=== PATIENT | male | born 1945 | race Caucasian/White ===

== ENCOUNTER → 2020-10-01 15:22 | Outpatient (CLI) | payer MEDICARE, OTHER, SELFPAY ==
[2020-10-01 17:14] LABS: COVID19 -Nasal RAPID Negative (Negative)
== END ==
PROVIDERS: Visit Provider Physician Assistant
DX: Z01.812 Encounter for preprocedural laboratory examination (principal); Z20.822 Contact with and (suspected) exposure to COVID-19
CPT/HCPCS: 87635; C9803

== ENCOUNTER 2020-10-03 11:06 | Day surgery (SDC) | payer MEDICARE, OTHER, SELFPAY ==
[2020-10-03] VITALS (8 sets, daily range): BP systolic 142–157; BP diastolic 86–94; PULSE 65–90; RESP 10–18; TEMP 36.7–37; O2SAT 95–98; BMI 35.4
--- NOTE | 2020-10-03 | PATH_ITS ---
[facility] Accession Number: [id number] . 01 Material submitted: . PART A: colon - ASCENDING COLON POLYPS PART B: colon - TRANSVERSE COLON POLYPS . 01 Clinical history: . A: POLYPS X2 B: POLYPS X2 . 02 Diagnosis: A. Ascending Colon Polyps: Portion of tubular adenoma x1. Superficial portion of colorectal mucosa x1 with a benign lymphoid aggregate. . B. Transverse Colon Polyps: Portions of tubular adenoma x2. MRV 10/08/2020 1035 Local . 02 Electronically signed: . Karmen Love MD, Pathologist NPI- [id number] . 01 Gross description: . Part A: ASCENDING COLON POLYPS: Received in formalin are 2 fragment(s) of patel, soft tissue measuring 0.2 x 0.2 x 0.2 cm to 0.4 x 0.2 x 0.2 cm submitted entirely in 1 cassette(s) Part B: TRANSVERSE COLON POLYPS: Received in formalin are 2 fragment(s) of patel, soft tissue measuring 0.2 x 0.2 x 0.2 cm to 0.4 x 0.4 x 0.2 cm submitted entirely in 1 cassette(s) /HINA 10/04/2020 1922 Local . 02 Pathologist provided ICD-10: K63.5, Z80.0 . 02 CPT . 742261, 898862 Performed at: [address] [facility] [address] [id number] MD Dieter Castro MD Phone: [phone] Performed at: 02 [facility] [place] [address] [place], [place] [id number] MD Rose Mijares MD Phone: [phone]
--- NOTE | 2020-10-03 11:05 | PM.HP.1 ---
History of Present Illness History of Present Illness Date Patient Seen: 10/03/20 Chief complaint: SDC Narrative: 75-year-old male with a family history of colon cancer and family history of BRCA2 related cancer who is here for surveillance Meds Home Medications and Allergies Home Medications Medication Instructions Recorded Confirmed Type amlodipine 10/03/20 History atorvastatin 10/03/20 History buspirone mg 10/03/20 History dextroamphetamine-amphetamine 10/03/20 History fluoxetine mg 10/03/20 History lamotrigine PO 10/03/20 History levothyroxine 10/03/20 History tamsulosin mg PO 10/03/20 History zolpidem 10/03/20 History zolpidem 10/03/20 History Allergies Allergy/AdvReac Type Severity Reaction Status Date / Time Penicillins Allergy Intermediate Verified 10/03/20 11:29 Exam Narrative Exam Narrative: General: Patient is well developed, not in apparent distress Cardiovascular: Regular rate and rhythm, no murmurs, rubs, or gallops; no evidence of edema; no palpable abdominal aortic aneurysm Gastrointestinal: Normoactive bowel sounds, soft, nontender, nondistended, no rebound tenderness, no hepatosplenomegaly, no evidence of hernia Assessment & Plan Assessment & Plan narrative: 75-year-old male with a family history of colon cancer in first-degree relative and personal history of colon polyps; family history of BRCA2 associated cancer; 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 Patient is here for surveillance Regarding the procedure(s), the risks and potential complications, benefits, and alternatives (including not doing the procedure) were discussed with the patient. The risks include but are not limited to bleeding, splenic injury, infection, perforation which may require surgical intervention, missed lesions, and adverse reactions to sedative medicines. After a question and answer period, the patient agreed to proceed with the procedure(s) and gives informed consent.
[2020-10-03] MEDS: SODIUM CHLORIDE 0.9% 1,000 ML 70 ML IV (12:00)
--- NOTE | 2020-10-03 12:21 | PM.OP.ENDO ---
Operative Date/Time/Diagnoses Date of procedure: 10/03/20 Procedure Notes Procedure in detail: Surgeon: Mikey Valdez MD Procedure: Colonoscopy with polypectomy x4 Preoperative diagnosis: Family history of colon cancer in first-degree relative, personal history colon polyps Postoperative diagnosis: Colon polyps x4 status post polypectomy; sigmoid diverticulosis; grade 1 internal hemorrhoids Medications: Conscious sedation using 4 mg IV of Midazolam and 150 mcg IV of Fentanyl Preanesthesia Assessment An H and P was performed/updated and the Px?s ASA class is 2. The procedure was discussed in detail with the patient. The potential risks and complications including infection, bleeding, missed lesions, perforation, need for surgery in case of perforation, prolonged hospital stay, and were explained. A brief question and answer period was allotted and once all questions were answered, informed consent was obtained. The patient was brought back to the procedure room and placed on standard monitoring. The patient?s vital signs were monitored continuously throughout the entire procedure. Prior to starting, a timeout was performed to confirm the patient?s identity, allergies, medications, and procedure. Procedure in detail The patient was placed in left lateral decubitus position and once adequate sedation was obtained a SURINDER was performed. The digital rectal examination did not reveal any palpable lesions. The tip of the colonoscope was placed in the anal canal and advanced with mild difficulty all the way to the cecum which was identified by the appendiceal orifice and the ileocecal valve. Careful examination of all monsivais of the colon was performed with irrigation of any residual stool. The patient was noted to have a very redundant colon, which required shortening of the scope and abdominal pressure In the ascending colon, there was note of 2 sessile polyps measuring 2 mm which were removed by means of cold Jumbo forceps. Resection and retrieval was complete with minimal bleeding In the transverse colon, there was note of 2 sessile polyps measuring 4-5 mm which were removed by means of cold snare. Resection and retrieval was complete with minimal bleeding In the sigmoid colon, there was note of multiple medium-sized diverticula Retroflexion was performed in the rectum which revealed grade 1 internal hemorrhoids The patient tolerated the procedure well and will be brought back to the recovery area to be discharged once criteria are met. The prep was judged to be good and adequate to identify polyps less than 5 mm. The withdrawal time was 17 minutes. The total physician intraservice time was 26 minutes. Complications There were no complications and estimated blood loss was minimal. Recommendations: Resume previous diet Continue outPx medications Follow up pathology results Repeat colonoscopy in 3 or 5 years depending on pathology results. (BRCA2 gene mutation does NOT confer increased colorectal cancer risk; if you are tested for Still syndrome and this is positive then the surveillance interval goes 1-2 years) Call our office ([facility] [place] [facility]) to schedule follow-up with Dr Guzmán to discuss Still syndrome testing and implications An emergency contact number was given to the patient for any complications related to the procedure
[2020-10-03] MEDS: MIDAZOLAM 5 MG/5 ML VIAL IV (12:24)
[2020-10-03] MEDS: fentaNYL 250 MCG/5 ML INJ IV (12:27)
== END 2020-10-03 13:40 | disposition home or self-care (01) ==
PROVIDERS: Internal Medicine Gastroenterology; PCP Family Medicine; Referring Provider Family Medicine; Visit Provider Internal Medicine Gastroenterology
PROC: 0DJD8ZZ Inspection of Lower Intestinal Tract, Via Natural or Artificial Opening Endoscopic (ICD-10-PCS; CPT 45378; principal; 2020-10-03 12:30)
DX: Z12.11 Encounter for screening for malignant neoplasm of colon (principal); Z80.0 Family history of malignant neoplasm of digestive organs; Z86.010 Personal history of colon polyps; I10 Essential (primary) hypertension; E78.00 Pure hypercholesterolemia, unspecified; F32.9 Major depressive disorder, single episode, unspecified; K57.30 Diverticulosis of large intestine without perforation or abscess without bleeding; K64.0 First degree hemorrhoids; D12.2 Benign neoplasm of ascending colon; D12.3 Benign neoplasm of transverse colon
CPT/HCPCS: 45385; 45380; J2250; J3010

== ENCOUNTER 2023-11-02 11:52 | Day surgery (SDC) | payer MEDICARE, SELFPAY ==
[2023-11-02 12:28] VITALS: BP 150/83; PULSE 94; RESP 16; TEMP 37.1; O2SAT 98
[2023-11-02] MEDS: LACTATED RINGERS 1,000 ML 42 ML IV (12:51)
--- NOTE | 2023-11-02 13:10 | SUR.PREOP ---
HEALING BRUISE RIGHT UPPER CHEST WALL - PT DENIES INJURY. BRUISE IS YELLOWISH AND PURPLE.
--- NOTE | 2023-11-02 13:38 | P.HP_ITS ---
History of Present Illness History of Present Illness Date Patient Seen: 11/02/23 Chief complaint: Colonoscopy PFSH Social History household members: spouse Smoking Status: Never smoker alcohol intake: current Meds Home Medications and Allergies Home Medications Medication Instructions Recorded Confirmed Type atorvastatin 40 mg tablet 40 mg PO DAILY 10/03/20 11/02/23 History buspirone 10 mg tablet mg 10/03/20 History dextroamphetamine-amphetamine 5 mg 10/03/20 History tablet fluoxetine 20 mg capsule mg 10/03/20 History levothyroxine 100 mcg tablet 100 mcg PO DAILY 10/03/20 11/02/23 History zolpidem 10 mg tablet 10 mg PO DAILY 10/03/20 11/02/23 History amlodipine 2.5 mg tablet 2.5 mg PO DIRECTED 11/02/23 11/02/23 History lisinopril 20 mg tablet 20 mg PO BID 11/02/23 11/02/23 History Allergies Allergy/AdvReac Type Severity Reaction Status Date / Time Penicillins Allergy Intermediate Verified 11/02/23 12:15 Exam Vital Signs (past 8 hours): - 11/02/23 12:28 Temperature 98.7 F Pulse Rate 94 H Respiratory Rate 16 Blood Pressure 150/83 H Pulse Oximetry 98 Oxygen Delivery Method Room Air Oxygen Delivery Method Room Air
--- NOTE | 2023-11-02 13:40 | P.HP_ITS ---
History of Present Illness History of Present Illness Date Patient Seen: 11/02/23 Chief complaint: Colonoscopy Narrative: Personal history of colon polyps and BRCA2 [facility] Social History household members: spouse Smoking Status: Never smoker alcohol intake: current Meds Home Medications and Allergies Home Medications Medication Instructions Recorded Confirmed Type atorvastatin 40 mg tablet 40 mg PO DAILY 10/03/20 11/02/23 History buspirone 10 mg tablet mg 10/03/20 History dextroamphetamine-amphetamine 5 mg 10/03/20 History tablet fluoxetine 20 mg capsule mg 10/03/20 History levothyroxine 100 mcg tablet 100 mcg PO DAILY 10/03/20 11/02/23 History zolpidem 10 mg tablet 10 mg PO DAILY 10/03/20 11/02/23 History amlodipine 2.5 mg tablet 2.5 mg PO DIRECTED 11/02/23 11/02/23 History lisinopril 20 mg tablet 20 mg PO BID 11/02/23 11/02/23 History Allergies Allergy/AdvReac Type Severity Reaction Status Date / Time Penicillins Allergy Intermediate Verified 11/02/23 12:15 Exam Vital Signs (past 8 hours): - 11/02/23 12:28 Temperature 98.7 F Pulse Rate 94 H Respiratory Rate 16 Blood Pressure 150/83 H Pulse Oximetry 98 Oxygen Delivery Method Room Air Oxygen Delivery Method Room Air Narrative Exam Narrative: Oropharynx free of lesions Chest clear to auscultation percussion Cardiac exam reveals no S3 or murmur Assessment & Plan Assessment & Plan narrative: History of 3 adenomatous colon polyps 3 years ago need for follow-up colonoscopy. There is also the issue of positive BRCA2 positivity though association with colon adenomas or cancer is inconsistent. Further recommendations will follow the study.
--- NOTE | 2023-11-02 13:42 | P.OP.COLON_ITS ---
Operative Date/Time/Diagnoses Date of procedure: 11/02/23 Pre-op diagnosis: See indication and findings Procedure & Clinicians Study performed: Colonoscopy Indications: Follow-up adenomatous polyps Procedure Notes Procedure in detail: After informed consent was obtained the patient was placed in left lateral decubitus position. The video colonoscope was introduced the rectum slowly advanced to the cecum. Preparation was good. On slow withdrawal mucosa was carefully examined. The scope was removed. The patient tolerated procedure w ell. Blood loss none Complications none Sedation mac Findings 1. Scattered mild left-sided diverticulosis 2. Otherwise negative colonoscopy to cecum. No polyps seen. Rather than switch to 7 the next colonoscopy. years between procedures I would recommend either 3 or 5 years for
[2023-11-02 14:10] VITALS: BP 116/80; PULSE 78; RESP 16; TEMP 37.3; O2SAT 95
[2023-11-02 14:15] VITALS: BP 142/87; PULSE 68; RESP 15; O2SAT 98
[2023-11-02 14:20] VITALS: BP 160/98; PULSE 73; RESP 15; O2SAT 98
[2023-11-02 14:25] VITALS: BP 155/78; PULSE 75; RESP 15; O2SAT 98
[2023-11-02 14:27] VITALS: BP 160/70; PULSE 77; RESP 14; TEMP 36.6; O2SAT 96
== END 2023-11-02 14:43 | disposition home or self-care (01) ==
PROVIDERS: PCP Family Medicine; Referring Provider Internal Medicine Gastroenterology; Visit Provider Internal Medicine Gastroenterology
PROC: 0DJD8ZZ Inspection of Lower Intestinal Tract, Via Natural or Artificial Opening Endoscopic (ICD-10-PCS; CPT 45378; principal; 2023-11-02 13:00)
DX: Z12.11 Encounter for screening for malignant neoplasm of colon (principal); Z86.010 Personal history of colon polyps; K57.30 Diverticulosis of large intestine without perforation or abscess without bleeding
CPT/HCPCS: G0105; J2704